=== PATIENT | male | born 1950 | race Caucasian/White ===

== ENCOUNTER 2018-08-23 08:31 | Emergency (ER) | payer BC, MEDICARE ==
[2018-08-23] MEDS ORDERED: Albuterol/Ipratropium 3.0-0.5 MG/3 ML Neb Soln NEB ONE (09:05)
--- NOTE | 2018-08-23 09:09 | EDM.PDOC ---
ED HPI GENERAL MEDICAL PROBLEM - General Chief Complaint: Respiratory Problem Stated Complaint: COLD Time Seen by Provider: 08/23/18 08:50 Source of Information: Reports: Patient History Limitations: Reports: No Limitations - History of Present Illness INITIAL COMMENTS - FREE TEXT/NARRATIVE: 68-year-old male with increasing asthma symptoms and cough for the past several days. No fever or chills, no significant facial congestion or sore throat. He woke up short of breath this morning at 5 AM and had to use inhaler so thought he should be checked. He still feels somewhat short of breath. Onset: Gradual Duration: Day(s): (2-3 days) Associated Symptoms: Reports: Cough, Shortness of Breath. Denies: Fever/Chills , Headaches - Related Data Allergies Allergy/AdvReac Type Severity Reaction Status Date / Time Penicillins Allergy Cannot Verified 08/23/18 08:47 Remember chloroethane Allergy Shaking Uncoded 08/23/18 08:47 Home Meds: Home Meds Albuterol Sulfate [Proair Hfa] 2 puff INH DAILY 12/20/13 [History] Aspirin [Ivelisse Chewable Aspirin] 81 mg PO DAILY 12/20/13 [History] Docusate Sodium [Colace] 100 mg PO DAILY 12/20/13 [History] Fexofenadine/Pseudoephedrine [Dee-D 12 Hour] 1 tab PO DAILY 12/20/13 [ History] Fluticasone Propionate [Flonase] 16 gm NS DAILY 12/20/13 [History] Losartan [Cozaar] 25 mg PO DAILY 12/20/13 [History] Sildenafil [Viagra] 100 mg PO ASDIRECTED PRN 12/20/13 [History] Simvastatin [Zocor] 80 mg PO BEDTIME 12/20/13 [History] Budesonide/Formoterol Fumarate [Symbicort 80-4.5 Mcg Inhaler] 2 puff INH DAILY 08/23/18 [History] Past Medical History HEENT History: Reports: Allergic Rhinitis, Impaired Vision Cardiovascular History: Reports: High Cholesterol, Hypertension Respiratory History: Reports: Asthma Endocrine/Metabolic History: Reports: Diabetes, Type II Social & Family History - Tobacco Use Smoking Status *Q: Never Smoker - Caffeine Use Caffeine Use: Reports: Coffee - Alcohol Use Days Per Week of Alcohol Use: 7 Number of Drinks Per Day: 1 Total Drinks Per Week: 7 - Recreational Drug Use Recreational Drug Use: No ED ROS GENERAL - Review of Systems Review Of Systems: See Below Constitutional: Denies: Fever, Chills HEENT: Reports: Rhinitis. Denies: Ear Pain, Throat Pain Respiratory: Reports: Shortness of Breath (Small amount of nasal congestion and rhinitis), Wheezing, Cough. Denies: Sputum Cardiovascular: Denies: Chest Pain GI/Abdominal: Denies: Abdominal Pain, Nausea, Vomiting Skin: Reports: No Symptoms Neurological: Denies: Headache ED EXAM, GENERAL - Physical Exam Exam: See Below Exam Limited By: No Limitations General Appearance: Alert, No Apparent Distress Throat/Mouth: Normal Inspection Head: Atraumatic Respiratory/Chest: No Respiratory Distress, Wheezing (A few scattered expiratory wheezes are heard, no rales or rhonchi) Cardiovascular: Regular Rate, Rhythm Neurological: Alert, Oriented Skin Exam: Warm, Dry Course - Vital Signs Last Recorded V/S: Last Vital Signs Temp 96.3 F 08/23/18 08:49 Pulse 84 08/23/18 08:49 Resp 16 08/23/18 08:49 BP 158/95 H 08/23/18 08:49 Pulse Ox 96 08/23/18 08:49 - Orders/Labs/Meds Orders: Active Orders 24 hr Category Date Time Status RT Aerosol Therapy [RC] ASDIRECTED Care 08/23/18 09:05 Active Meds: Medications Discontinued Medications Generic Name Dose Route Start Last Admin Trade Name Freq PRN Reason Stop Dose Admin Albuterol/Ipratropium 3 ml 08/23/18 09:05 08/23/18 09:14 Duoneb 3.0-0.5 Mg/3 Ml NEB 08/23/18 09:06 3 ml ONETIME ONE Administration - Re-Assessments/Exams Free Text/Narrative Re-Assessment/Exam: 08/23/18 09:07 The symptoms are most likely allergy related and not infectious. He was given a DuoNeb which provided some subjective and objective provement, and started on prednisone 50 mg daily for 3 consecutive days. He is going to continue using his inhaler as needed, and will recheck in 2-3 days if not improving satisfactorily. Departure - Departure Time of Disposition: 09:28 Disposition: Home, Self-Care 01 Condition: Good Clinical Impression: Asthma exacerbation Qualifiers: Asthma severity: moderate Asthma persistence: unspecified Qualified Code(s): J45.901 - Unspecified asthma with (acute) exacerbation - Discharge Information Instructions: Asthma, Adult Referrals: PCP,None [Primary Care Provider] - Forms: ED Department Discharge Care Plan Goals: Continue using your inhaler on a regular basis as needed, and take 5 pills of prednisone with your first meal for 3 consecutive days. Activity as tolerated, and return anytime if worsening despite treatment or consider rechecking in 3-4 days if not improving satisfactorily. - My Orders Last 24 Hours: My Active Orders 08/23/18 09:05 RT Aerosol Therapy [RC] ASDIRECTED - Assessment/Plan Last 24 Hours: My Active Orders 08/23/18 09:05 RT Aerosol Therapy [RC] ASDIRECTED
== END 2018-08-23 09:28 | disposition home or self-care (01) ==
LOC: JP.ED 08:31
DX: J45.901 Unspecified asthma with (acute) exacerbation (principal); E11.9 Type 2 diabetes mellitus without complications; I10 Essential (primary) hypertension; E78.00 Pure hypercholesterolemia, unspecified; Z79.899 Other long term (current) drug therapy; Z79.82 Long term (current) use of aspirin; Z88.0 Allergy status to penicillin; Z88.8 Allergy status to other drugs, medicaments and biological substances
CPT/HCPCS: 94640; 99283-25; J7620-GY